=== PATIENT | female | born 1985 | race African-American/Black ===

== ENCOUNTER 2017-04-07 04:17 | Emergency (ER) | payer MEDICAID ==
[~2017-04-07] VITALS: Ht 157.5 cm; Wt 113.4 kg
[2017-04-07 05:08] VITALS: BP 137/99
[2017-04-07 05:44] LABS: Urine Bilirubin Negative (Negative); Urine Blood Negative /uL (Negative); Urine Color Colorless (Yellow); Urine Glucose Normal (Normal); Urine Ketone Negative (Negative); Urine Nitrite Negative (Negative); Urine RBC 1 /hpf (0 - 4); Urine Squamous Epithelial Cell FEW /hpf (<5); Urine Urobilinogen Normal (Negative)
[2017-04-07] MEDS ORDERED: ONDANSETRON ODT 4 MG TAB PO ONE (06:15)
== END 2017-04-07 06:47 | disposition home or self-care (01) ==
LOC: ER 04:21
DX: F41.9 Anxiety disorder, unspecified (principal); R20.0 Anesthesia of skin; E07.9 Disorder of thyroid, unspecified
CPT/HCPCS: 81001; 81025; 93971; 99285; Q0162

== ENCOUNTER 2018-09-14 21:24 | Emergency (ER) | payer MEDICAID ==
[~2018-09-14] VITALS: Ht 157.5 cm; Wt 111.1 kg
[2018-09-14 22:24] LABS: Basophils # (auto) 0 uL; Basophils % (auto) 0.4 % (0.0-2.0); Eosinophils # (auto) 0.2 uL; Eosinophils % (auto) 3.3 % (0.0-7.0); Hematocrit 35.8 % (36.0-46.0); Hemoglobin 11.6 g/dL (12.2-16.2); Lymphocytes # (auto) 2.1 uL; Lymphocytes % (auto) 29.7 % (10.0-50.0); Mean Corpuscular Hemoglobin 27.1 pg (28.0-32.0); Mean Corpuscular Hgb Conc. 32.4 g/dL (32.0-36.0); Mean Corpuscular Volume 83.6 fL (80.0-100.0); Monocytes # (auto) 0.6 uL; Neutrophils % (auto) 57.6 % (37.0-80.0); Platelet Count (auto) 206 10^3/uL (140-450); Red Blood Cells 4.28 10^6/uL (4.0-5.20); Red Cell Distribution Width 15.3 % (11.8-14.3)
[2018-09-14 22:32] LABS: Urine Bacteria NONE SEEN /hpf (None Seen); Urine Blood Negative /uL (Negative); Urine Mucus FEW (None Seen); Urine Specific Gravity 1.019 (1.001-1.035); Urine WBC <1 /hpf (0 - 5)
[2018-09-14 22:39] VITALS: BP 131/84
[2018-09-14 22:39] LABS: Albumin 3.1 g/dL (3.4-5.0); Calcium 8.6 mg/dL (8.5-10.1); Potassium 3.6 mmol/L (3.5-5.1)
[2018-09-14 22:42] LABS: BUN/Creatinine Ratio 10.5; Bilirubin, Total 0.3 mg/dL (0.2-1.0); Total Protein 7.2 g/dL (6.4-8.2)
[2018-09-14 22:57] LABS: Alcohol, Urine < 3.0 mg/dL (0-5); Amphetamine Screen, Urine NEGATIVE (NEGATIVE); Barbiturate Scree,Urine NEGATIVE (NEGATIVE); Benzodiazephine Screen, Urine NEGATIVE (NEGATIVE); Cannabinoid Screen, Urine POSITIVE (NEGATIVE); Cocaine Screen, Urine NEGATIVE (NEGATIVE); Opiate Scree,Urine NEGATIVE (NEGATIVE); Phencyclidine Screen, Urine NEGATIVE (NEGATIVE)
== END 2018-09-15 | disposition home or self-care (01) ==
LOC: ER 21:27
DX: O26.891 Other specified pregnancy related conditions, first trimester (principal); O09.521 Supervision of elderly multigravida, first trimester; O21.9 Vomiting of pregnancy, unspecified; R10.13 Epigastric pain; Z3A.01 Less than 8 weeks gestation of pregnancy
CPT/HCPCS: 36415; 76705; 76801; 80053; 80307; 81001; 81025; 82150; 83690; 83735; 85025

== ENCOUNTER 2019-04-01 15:51 | Emergency (ER) | payer MEDICAID ==
[~2019-04-01] VITALS: Ht 157.5 cm; Wt 113.4 kg
[2019-04-01 16:04] VITALS: BP 142/93
[2019-04-01] MEDS ORDERED: SODIUM CHLORIDE 0.9% 2,000 ML IV ONE (16:58)
[2019-04-01] MEDS ORDERED: ONDANSETRON HCL 4 MG/2 ML VIAL IV ONE (17:00)
== END 2019-04-01 17:57 | disposition left against medical advice (07) ==
LOC: ER 15:54
DX: O21.8 Other vomiting complicating pregnancy (principal); Z3A.01 Less than 8 weeks gestation of pregnancy; Z53.21 Procedure and treatment not carried out due to patient leaving prior to being seen by health care provider